=== PATIENT | female | born 1950 | race Caucasian/White ===

== ENCOUNTER 2016-09-26 16:30 | Emergency (ER) | payer SELFPAY ==
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
[2016-09-26] MEDS: KETOROLAC TROMETHAMINE 60 MG/2 ML VIAL IM ONE (17:48)
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
[2016-09-26] MEDS: CYCLOBENZAPRINE HCL 5 MG TABLET PO ONE (18:20)
[2016-09-26 18:25] VITALS: BP 180/88
== END 2016-09-26 18:24 | disposition home or self-care (01) ==
LOC: ED 16:30
DX: M62.830 Muscle spasm of back (principal); M25.511 Pain in right shoulder; M54.2 Cervicalgia; Y32.XXXA Crashing of motor vehicle, undetermined intent, initial encounter; Y99.9 Unspecified external cause status
CPT/HCPCS: 72100; 72125; 73030; J1885; 99283

== ENCOUNTER 2018-11-02 18:57 | Emergency (ER) | payer MEDICARE, OTHER ==
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
[2018-11-02] MEDS ORDERED: GUM MASTIC/STORAX/MSAL/ALCOHOL 1 EACH DROPERETTE TP ONE ×2 (20:29→20:37)
[2018-11-02] MEDS ORDERED: Lidocaine 1% 5ml 10 MG/ML VIAL IJ ONE (20:37)
[2018-11-02] MEDS ORDERED: NAPROXEN 250 MG TABLET PO ONE (20:47)
[2018-11-02 21:25] VITALS: BP 154/67
--- NOTE | 2018-11-08 17:57 | Diagnostic Imaging Report ---
LINDSAY AGUIRRE ED [facility] [address] [address] Report Submission Date: Nov 02, 2018 7:52:35 PM CDT Patient Study Name: ANDREW CARRERA Date: Nov 02, 2018 7:09:05 PM CDT Modality Type: DX Gender: F Description: BILAT HIPS 2V (W/PEL IF DONE) : 54 Institution: [facility] Physician: LINDSAY AGUIRRE ED EXAMINATION: BILAT HIPS 2V (W/PEL IF DONE) HISTORY: fall, bilateral hip pain (Hx) / Note time : 11/02/2018 7:46:18 PM User : Chelita Eckert fall, bilat hip pain (DICOM Hx) (DICOM Hx) COMPARISON: None FINDINGS: No acute fracture is identified. The femoral heads appear well-seated within their respective acetabula. There is mild bilateral hip degenerative change. The pubic symphysis is intact. The sacroiliac joints appear normal. IMPRESSION: No acute fracture identified. Electronically signed on Nov 02, 2018 7:52:35 PM CDT by: Dony HA
--- NOTE | 2018-11-08 17:58 | Diagnostic Imaging Report ---
LINDSAY AGUIRRE ED [facility] [address] [address] Report Submission Date: Nov 02, 2018 7:51:01 PM CDT Patient Study Name: ANDREW CARRERA Date: Nov 02, 2018 7:25:01 PM CDT Modality Type: DX Gender: F Description: MANDIBLES <4 VIEWS : 54 Institution: [facility] Physician: LINDSAY AGUIRRE ED EXAMINATION: MANDIBLES <4 VIEWS HISTORY: fall, mentum pain (Hx) / Note time : 11/02/2018 7:45:41 PM User : Chelita Eckert fall, mentum pain (DICOM Hx) (DICOM Hx) COMPARISON: None FINDINGS/ IMPRESSION: There is no evidence of acute displaced mandibular fracture. If there is continued clinical concern, CT may be considered as it has better sensitivity for the detection of fracture. Electronically signed on Nov 02, 2018 7:51:01 PM CDT by: Dony HA
--- NOTE | 2018-11-08 18:00 | Diagnostic Imaging Report ---
LINDSAY AGUIRRE ED [facility] [address] [address] Report Submission Date: Nov 02, 2018 7:52:05 PM CDT Patient Study Name: ANDREW CARRERA Date: Nov 02, 2018 7:09:05 PM CDT Modality Type: DX Gender: F Description: L SPINE 2 OR 3 VIEWS : 54 Institution: [facility] Physician: LINDSAY AGUIRRE ED EXAMINATION: L SPINE 2 OR 3 VIEWS HISTORY: fall, LBP pain (Hx) / Note time : 11/02/2018 7:45:57 PM User : Chelita Eckert fall, LBP pain (DICOM Hx) (DICOM Hx) COMPARISON: None FINDINGS: Coil embolization material is seen in the right lower quadrant. The vertebral bodies are normally aligned. No acute fracture or compression deformity is identified. There is at least moderate lower lumbar degenerative disc and joint disease. IMPRESSION: No acute fracture or subluxation identified. Electronically signed on Nov 02, 2018 7:52:05 PM CDT by: Dony HA
== END 2018-11-02 21:09 | disposition home or self-care (01) ==
LOC: ED 18:57
DX: S01.81XA Laceration without foreign body of other part of head, initial encounter (principal); S30.0XXA Contusion of lower back and pelvis, initial encounter; W01.0XXA Fall on same level from slipping, tripping and stumbling without subsequent striking against object, initial encounter; Y92.009 Unspecified place in unspecified non-institutional (private) residence as the place of occurrence of the external cause
CPT/HCPCS: 12013; 70100; 72100; 73521; 96372; 99282; 99283